=== PATIENT | male | born 1945 | race Caucasian/White ===

== ENCOUNTER 2020-07-23 13:27 | Inpatient (IN) | payer MEDICARE, MEDICAID ==
[~2020-07-23 13:27] MED LIST: Iopamidol-370 76% 500 ML 1 ML ONE
[2020-07-23 13:56] LABS: Hemoglobin 13.6 g/dL (14.0-18.0); Mean Corpuscular HGB CONC 33.3 g/dL (32.0-36.0); Mean Corpuscular Hemoglobin 31.7 pg (27.0-31.0); Mean Corpuscular Volume 95.2 fL (78.0-98.0); Mean Platelet Volume 9.2 fL (7.4-10.4); Platelet Count 185 thou/uL (130-400); RBC Distribution Width 11.8 % (11.5-14.5); Red Blood Cell (RBC) Count 4.29 mill/uL (4.70-6.10); White Blood Cell (WBC) Count 21.3 thou/uL (4.8-10.8)
[2020-07-23 14:02] LABS: INR-International Normal Ratio 1.2; PTT 32.5 sec (22.9-36.1); Prothrombin Time 15.7 sec (12.0-14.7)
[2020-07-23 14:03] LABS: D-Dimer Test 0.29 *mcg/mL (0.27-0.43)
[2020-07-23] MEDS ORDERED: cefTRIAXone\\ROCEPHIN 2 GM VIAL ONE (14:04)
[2020-07-23 14:13] LABS: Bacteria/HPF 4+ HPF (None Seen); Bilirubin Negative (Negative); Blood, Urine 3+ (Negative); Clarity Turbid (Clear); Glucose, Urine (Dipstick) Normal (Negative); Ketone, Urine Negative (Negative); Leukocyte 500 Leu/uL (Negative); Nitrite Negative (Negative); Protein, Urine (Dipstick) 100 mg/dL (Neg-Trace); RBC/HPF Greater than 50 HPF (0-3); Specific Gravity, Urine 1.019 (1.002-1.036); Squamous Epithelial None Seen HPF (0-3); Urobilinogen Normal mg/dL (Less than 2); WBC/HPF Greater than 50 HPF (0-3); pH, Urine 6.5 (5.0-9.0)
[2020-07-23 14:17] LABS: ALT (SGPT) 12 U/L (8-55); AST (SGOT) 16 U/L (5-34); Albumin 3.6 g/dL (3.4-4.8); Alkaline Phosphatase 78 U/L (40-110); Anion Gap 16 mmol/L (10-20); BUN (Urea Nitrogen) 12 mg/dL (8.4-25.7); Band 20 % (5-11); Bilirubin, Total 1.5 mg/dL (0.2-1.2); CK (CPK) 44 U/L (30-200); Calc. Creatinine Clearance 0 mL/min (70-130); Calcium 8.4 mg/dL (7.8-10.44); Carbon Dioxide 21 mmol/L (23-31); Chloride 98 mmol/L (98-107); Globulin 3.7 g/dL (2.4-3.5); Glucose 145 mg/dL (83-110); Lipase 13 U/L (8-78); Lymphocytes 1 % (21-51); MDiff Complete? YES; Monocytes 6 % (0-10); Neutrophil 68 % (42-75); Platelet Morphology Comment Appears Adequate; Potassium 3.6 mmol/L (3.5-5.1); Protein, Total 7.3 g/dL (5.8-8.1); RBC Morphology Normal; Reactive Lymphocytes 4 % (0-10); Sodium 131 mmol/L (136-145)
[2020-07-23] MEDS ORDERED: hydrALAZINE 20 MG/ML VIAL SLOW IVP PRN (14:45)
[2020-07-23] MEDS ORDERED: Ondansetron ODT 4 MG TAB PO PRN (14:45)
[2020-07-23] MEDS ORDERED: Acetaminophen 325 MG TAB PO PRN (14:45)
[2020-07-23] MEDS ORDERED: Loratadine 10 MG TAB PO PRN (14:45)
[2020-07-23] MEDS ORDERED: Senokot S 8.6-50 MG TAB PO PRN (14:45)
[2020-07-23] MEDS ORDERED: GUAIFENESIN SF SOLN 200 MG/10 ML UDCUP PO PRN (14:45)
[2020-07-23] MEDS ORDERED: HYDROcodone/Acetaminophen 5/325 mg Tablet PO PRN (14:45)
[2020-07-23] MEDS ORDERED: Bisacodyl 5 MG TAB PO PRN (14:45)
[2020-07-23] MEDS ORDERED: Cepastat Lozenges 1 LOZ PO PRN (14:45)
[2020-07-23] MEDS ORDERED: Sodium Chloride 0.65% Nasal 44 ML BOT EA NARE PRN (14:45)
[2020-07-23] MEDS ORDERED: Calcium Carbonate 500 MG ChewTAB PO PRN (14:45)
[2020-07-23] MEDS ORDERED: Ondansetron PF 4 MG/2 ML Vial IVP PRN (14:45)
[2020-07-23] MEDS ORDERED: Loperamide HCl 2 MG CAP PO PRN (14:45)
[2020-07-23] MEDS ORDERED: Zolpidem Tartrate 5 MG TAB PO PRN (14:45)
[2020-07-23] MEDS ORDERED: Vancomycin 1 GM/200 ML BAG ONE (14:59)
[2020-07-23] MEDS ORDERED: Ondansetron PF 4 MG/2 ML Vial ONE (15:09)
[2020-07-23 16:59] LABS: Lactic Acid 1.6 mmol/L (0.5-2.2)
[2020-07-23 17:40] LABS: SARS-CoV-2 NAA Rapid Test Not Detected (NotDetected)
[2020-07-23 20:09] VITALS: BMI 22.6
[2020-07-23] MEDS: Sodium Chloride 0.9% 1,000 ML IV SCH (21:04)
[2020-07-23] MEDS: Cefepime 1 GM in Sodium Chloride 0.9% 100 ML IVPB SCH (21:06)
[2020-07-23] MEDS: Famotidine 20 MG TAB PO SCH (21:07)
[2020-07-24] MEDS ORDERED: Vancomycin 1 GM in Premix Bag 1 BAG IVPB SCH (03:00)
[2020-07-24] MEDS: Sodium Chloride 0.9% 1,000 ML IV SCH ×3 (03:58→21:12)
[2020-07-24 05:57] LABS: #Basophils 0.1 thou/uL (0.0-0.2); #Eosinphils 0.2 thou/uL (0.0-0.7); #Lymphocytes 2.2 thou/uL (1.20-3.40); #Neutrophils 10.1 thou/uL (1.40-6.50); %Basophils 0.5 % (0.0-1.0); %Eosinophils 1.7 % (0.0-10.0); %Lymphocytes 15.9 % (21.0-51.0); %Monocytes 7.3 % (0.0-10.0); %Neutrophils 74.6 % (42.0-75.0); Hemoglobin 11.9 g/dL (14.0-18.0); Mean Corpuscular HGB CONC 33.1 g/dL (32.0-36.0); Mean Corpuscular Hemoglobin 31.8 pg (27.0-31.0); Mean Corpuscular Volume 96.1 fL (78.0-98.0); Mean Platelet Volume 9.5 fL (7.4-10.4); Platelet Count 150 thou/uL (130-400); RBC Distribution Width 11.8 % (11.5-14.5); Red Blood Cell (RBC) Count 3.74 mill/uL (4.70-6.10); White Blood Cell (WBC) Count 13.6 thou/uL (4.8-10.8)
[2020-07-24 06:15] LABS: Lactic Acid 1.1 mmol/L (0.5-2.2)
[2020-07-24 06:23] LABS: ALT (SGPT) 10 U/L (8-55); AST (SGOT) 21 U/L (5-34); Albumin 2.8 g/dL (3.4-4.8); Alkaline Phosphatase 63 U/L (40-110); Anion Gap 12 mmol/L (10-20); BUN (Urea Nitrogen) 10 mg/dL (8.4-25.7); Bilirubin, Total 0.7 mg/dL (0.2-1.2); Calc. Creatinine Clearance 76 mL/min (70-130); Calcium 7.8 mg/dL (7.8-10.44); Carbon Dioxide 20 mmol/L (23-31); Chloride 107 mmol/L (98-107); Globulin 3.5 g/dL (2.4-3.5); Glucose 127 mg/dL (83-110); Potassium 4.4 mmol/L (3.5-5.1); Protein, Total 6.3 g/dL (5.8-8.1); Sodium 135 mmol/L (136-145)
[2020-07-24] MEDS: Tamsulosin HCl 0.4 MG CAP PO SCH (08:42)
[2020-07-24] MEDS: Enoxaparin Sodium 40 MG/0.4 ML SYRINGE SC SCH ×2 (08:42→08:44)
[2020-07-24] MEDS: Famotidine 20 MG TAB PO SCH ×2 (08:42→21:12)
[2020-07-24] MEDS: Cefepime 1 GM in Sodium Chloride 0.9% 100 ML IVPB SCH ×2 (08:42→21:12)
[2020-07-25] MEDS: Sodium Chloride 0.9% 1,000 ML IV SCH (05:50)
[2020-07-25] MEDS: Famotidine 20 MG TAB PO SCH (08:55)
[2020-07-25] MEDS: Cefepime 1 GM in Sodium Chloride 0.9% 100 ML IVPB SCH (08:55)
[2020-07-25] MEDS: Tamsulosin HCl 0.4 MG CAP PO SCH (08:56)
[2020-07-25] MEDS: Enoxaparin Sodium 40 MG/0.4 ML SYRINGE SC SCH (08:59)
[2020-07-25 12:07] VITALS: BP 111/68; TEMP 98.3
== END 2020-07-25 11:59 | disposition home or self-care (01) | DRG 872 ==
LOC: ERS 13:27 → T4-B 14:42
PROVIDERS: ADMIT Internal Medicine; ATTEND Internal Medicine
DX: A41.9 Sepsis, unspecified organism (principal); N30.00 Acute cystitis without hematuria; E87.2 Acidosis; E87.1 Hypo-osmolality and hyponatremia; N40.1 Benign prostatic hyperplasia with lower urinary tract symptoms; R35.0 Frequency of micturition; T36.8X5A Adverse effect of other systemic antibiotics, initial encounter; Z79.899 Other long term (current) drug therapy; Z88.1 Allergy status to other antibiotic agents
CPT/HCPCS: 0240U; 36415; 71045; 74177; 80053; 81003; 81015; 82550; 83605; 83690; 83880; 84484; 85025; 85379; 85610; 85730; 87040; 87077; 87086; 87149; 87186; 93005; 94760; 96365; 96367; J0692; J0696; J1650; J2405; J3370; J3490; Q9967